=== PATIENT | female | born 1960 | race Caucasian/White ===

== ENCOUNTER → 2022-05-23 | Outpatient (CLI) | payer OTHER | LOC: COL.RAD 11:30 | DX: Z08 Encounter for follow-up examination after completed treatment for malignant neoplasm (principal); R16.1 Splenomegaly, not elsewhere classified; R59.1 Generalized enlarged lymph nodes; Z85.72 Personal history of non-Hodgkin lymphomas; Z90.49 Acquired absence of other specified parts of digestive tract | CPT/HCPCS: Q9967 ==